=== PATIENT | male | born 1980 | race Caucasian/White ===

== ENCOUNTER 2019-05-02 08:24 | Outpatient (CLI) | payer BC ==
--- NOTE | 2019-05-02 09:55 | ULT ---
RIGHT BREAST DIAGNOSTIC ULTRASOUND: INDICATION: Pain within the right breast retroareolar region. FINDINGS: There is a flamed-shaped gynecomastia within the right breast retroareolar region. No identifiable s onographic mass is evident. IMPRESSION: BIRADS category 2 - benign. There is flamed-shaped male gynecomastia within the right breast subareo lar region. This is tender to palpation to the patient. Since this is becoming more symptomatic to the patient over the years, would recommend breast surgical referral for removal. Alternatively, sreedhar stic surgical referral could also be performed. The patient was counseled on findings prior to leavi ng the department. Negative imaging should never deter biopsy findings on clinical exam that are travis picious. CODE CR POS: OFF
--- NOTE | 2019-05-07 06:44 | MMO ---
Bilateral MAMMO Bilat Diag [facility]. CLINICAL HISTORY: Patient is 38 years old and is seen for diagnostic exam and lump or thickening in the right breast. The patient has no family history of breast cancer. The patient has no personal history of cancer. VIEWS: The views performed were: bilateral craniocaudal with tomosynthesis; bilateral mediolateral oblique with tomosynthesis; and bilateral mediolateral with tomosynthesis. FILMS COMPARED: The present examination has been compared to a prior imaging study performed at [facility] on 05/02/2019. MAMMOGRAM FINDINGS: There are scattered fibroglandular densities. There is an equal density, lobular mass seen in the sub-areolar region of the right breast. Palpable abnormality is seen to reflect assymetric breast tissue sonographically and mammographically. The right breast tissue is tender to the patient. There are no suspicious masses, suspicious calcifications, or new areas of architectural distortion. IMPRESSION: THERE IS NO MAMMOGRAPHIC EVIDENCE OF MALIGNANCY. ASYMMETRIC GYNECOMASTIA OF THE RIGHT BREAST. THE RIGHT BREAST TISSUE IS TENDER TO THE PATIENT. BREAST SURGICAL REFERRAL FOR REMOVAL IS RECOMMENDED. NEGATIVE IMAGING SHOULD NEVER DETER BIOPSY IF FINDINGS ON CLINICAL EXAM ARE SUSPICIOUS. THE RESULTS OF THIS EXAM WERE SENT TO THE PATIENT. ACR BI-RADS Category 2 - Benign finding MAMMOGRAPHY NOTE: 1. A negative mammogram report should not delay a biopsy if a dominant of clinically suspicious mass is present. 2. Approximately 10% to 15% of breast cancers are not detected by mammography. 3. Adenosis and dense breasts may obscure an underlying neoplasm. Reported by: TAYLOR CAMPO MD Electonically Signed: [id number]
== END 2019-05-02 08:25 | disposition home or self-care (01) ==
LOC: BICMAMMO 08:24
PROVIDERS: ATTEND Surgery
DX: N62 Hypertrophy of breast (principal); N63.0 Unspecified lump in unspecified breast
CPT/HCPCS: 77066; G0279

== ENCOUNTER 2019-05-17 07:53 | Day surgery (SDC) | payer BC ==
[2019-05-16 11:06] VITALS: BMI 27.1
[2019-05-17 09:18] LABS: #Eosinphils 0.1 thou/uL (0.0-0.7); #Lymphocytes 1.3 thou/uL (1.20-3.40); #Monocytes 0.3 thou/uL (0.11-0.59); #Neutrophils 2.6 thou/uL (1.40-6.50); %Basophils 0.7 % (0.0-1.0); %Eosinophils 2.7 % (0.0-10.0); %Lymphocytes 29.9 % (21.0-51.0); %Monocytes 7.7 % (0.0-10.0); Hemoglobin 15.1 g/dL (14.0-18.0); Mean Corpuscular Hemoglobin 30.3 pg (27.0-31.0); Mean Corpuscular Volume 86.8 fL (78.0-98.0); Mean Platelet Volume 7.4 fL (7.4-10.4); Platelet Count 178 thou/uL (130-400); RBC Distribution Width 11.9 % (11.5-14.5); Red Blood Cell (RBC) Count 4.99 mill/uL (4.70-6.10); White Blood Cell (WBC) Count 4.4 thou/uL (4.8-10.8)
[2019-05-17] MEDS ORDERED: Scopolamine 1.5 mg/72 hour Patch ONE (09:22)
[2019-05-17] MEDS ORDERED: Dexamethasone 20 MG/5 ML VIAL ONE (09:27)
[2019-05-17] MEDS ORDERED: Ondansetron PF 4 MG/2 ML Vial ONE (09:27)
[2019-05-17] MEDS ORDERED: PROPOFOL 200 MG/20 ML VIAL ONE (09:27)
[2019-05-17] MEDS ORDERED: Bupivacaine HCl 0.5%/Epinephrine 1:200,000/PF 30 ml Vial ONE (10:04)
[2019-05-17] MEDS ORDERED: Isosulfan Blue 50 MG/5 ML VIAL ONE (10:04)
[2019-05-17] MEDS ORDERED: Lidocaine 2% PF 5 ML VIAL ONE (10:04)
[2019-05-17] MEDS ORDERED: Fentanyl 100 MCG/2 ML VIAL ONE ×3 (10:07→11:48)
[2019-05-17] MEDS ORDERED: Midazolam HCl 2 mg/2 ml Vial ONE (10:07)
[2019-05-17] MEDS ORDERED: HYDROcodone/Acetaminophen 5/325 mg Tablet ONE (13:16)
--- NOTE | 2019-05-17 13:43 | OP ---
DATE OF PROCEDURE: 05/17/2019 PREOPERATIVE DIAGNOSIS: Right breast mass. PROCEDURE PERFORMED: Right breast biopsy. INDICATIONS: A 38-year-old male with a soft tissue swelling of the right breast. Mammogram suggested to be the gynecomastia, but it has been very painful, here for excision. FINDINGS: A 4 x 4 x 1.5 cm piece of tissue removed. DESCRIPTION OF PROCEDURE: After informed consent obtained, the patient was taken to the operating room, given general mask anesthesia, placed in the supine position. His right chest was prepped and draped in usual fashion. Local anesthesia was infiltrated subcutaneously and deep. A subareolar incision was performed. Subcu divided sharply. Then, using the plasma blade, the breast tissue was divided, leaving about three-quarters of a centimeter of tissue underneath the nipple areolar complex. This was performed circumferentially down to the fascia and then the tissue was excised off the fascia. It was marked with a blue suture anterior and a black suture superior, sent to Pathology for further analysis. Hemostasis was achieved with the plasma blade. A drain was placed and brought out through a separate stab wound. Then, the subcu reapproximated with interrupted 3-0 Vicryl. Skin closed with interrupted 4-0 Rapide. Steri-Strips applied. Sterile bandage applied. The patient tolerated the procedure well, transferred to Recovery in good condition. Sponge and needle count verified correct x2. Job ID: [id number]
== END 2019-05-17 14:00 | disposition home or self-care (01) ==
LOC: SDC 07:53
PROVIDERS: ATTEND Surgery
PROC: 0HBT0ZZ Excision of Right Breast, Open Approach (ICD-10-PCS; principal; 2019-05-17)
DX: N62 Hypertrophy of breast (principal); K21.9 Gastro-esophageal reflux disease without esophagitis; Z79.899 Other long term (current) drug therapy
CPT/HCPCS: 85025; 88305; J0670; J0690; J1100; J2001; J2250; J2405; J2704; J3010; Q9968

== ENCOUNTER 2021-03-14 08:58 | Inpatient (IN) | payer BC ==
[2021-03-14] MEDS ORDERED: Ondansetron PF 4 MG/2 ML Vial ONE ×2 (09:32→10:35)
[2021-03-14] MEDS ORDERED: Pantoprazole 40 MG VIAL ONE (09:32)
[2021-03-14 10:14] LABS: #Lymphocytes 0.5 thou/uL (1.20-3.40); #Monocytes 0.5 thou/uL (0.11-0.59); #Neutrophils 4.2 thou/uL (1.40-6.50); %Eosinophils 0.4 % (0.0-10.0); %Monocytes 9.7 % (0.0-10.0); Hemoglobin 15.6 g/dL (14.0-18.0); Mean Corpuscular HGB CONC 34.1 g/dL (32.0-36.0); Mean Corpuscular Volume 87.9 fL (78.0-98.0); Mean Platelet Volume 7.3 fL (7.4-10.4); Platelet Count 168 thou/uL (130-400); RBC Distribution Width 11.7 % (11.5-14.5); Red Blood Cell (RBC) Count 5.19 mill/uL (4.70-6.10); White Blood Cell (WBC) Count 5.1 thou/uL (4.8-10.8)
[2021-03-14 10:28] LABS: ALT (SGPT) 19 U/L (8-55); AST (SGOT) 17 U/L (5-34); Albumin 4.8 g/dL (3.5-5.0); Alkaline Phosphatase 70 U/L (40-110); Anion Gap 18 mmol/L (10-20); BUN (Urea Nitrogen) 23 mg/dL (8.9-20.6); Bilirubin, Total 0.6 mg/dL (0.2-1.2); Calc. Creatinine Clearance 0 mL/min (70-130); Calcium 9.2 mg/dL (7.8-10.44); Carbon Dioxide 21 mmol/L (22-29); Chloride 104 mmol/L (98-107); Globulin 3.2 g/dL (2.4-3.5); Glucose 111 mg/dL (70-105); Lipase 24 U/L (8-78); Potassium 3.9 mmol/L (3.5-5.1); Sodium 139 mmol/L (136-145)
[2021-03-14 10:32] LABS: Bilirubin Negative (Negative); Blood, Urine Negative (Negative); Clarity Clear (Clear); Glucose, Urine (Dipstick) Normal (Negative); Ketone, Urine Negative (Negative); Leukocyte Negative Leu/uL (Negative); Nitrite Negative (Negative); Protein, Urine (Dipstick) 10 mg/dL (Neg-Trace); Specific Gravity, Urine 1.023 (1.002-1.036); Urobilinogen Normal mg/dL (Less than 2); pH, Urine 5.5 (5.0-9.0)
[2021-03-14] MEDS ORDERED: Iopamidol-370 76% 500 ML 1 ML ONE (10:49)
[2021-03-14] MEDS ORDERED: Lorazepam 2 MG/ML VIAL ONE (12:21)
[2021-03-14] MEDS ORDERED: Acetaminophen 325 MG TAB PO PRN (12:32)
[2021-03-14] MEDS ORDERED: Acetaminophen 650 MG Suppository PR PRN (12:32)
[2021-03-14 14:10] LABS: Troponin I Less than 0.010 ng/mL (< 0.028)
[2021-03-14 15:56] VITALS: BMI 25.7
[2021-03-14] MEDS: Cepastat Lozenges 1 LOZ PO PRN ×2 (16:50→18:58)
[2021-03-14] MEDS: D5 1/2 NS w/10 mEq KCl 1,000 ML/1,000 ML BAG IV SCH ×2 (16:50→22:45)
[2021-03-14] MEDS: Pantoprazole 40 MG VIAL IVP SCH (20:18)
[2021-03-14] MEDS: Chloraseptic Spray 180 ml Bottle PO PRN (21:17)
[2021-03-15] MEDS: D5 1/2 NS w/10 mEq KCl 1,000 ML/1,000 ML BAG IV SCH ×3 (01:56→20:19)
[2021-03-15 06:58] LABS: SARS-CoV-2 NAA Rapid Test Not Detected (NotDetected)
[2021-03-15 06:59] LABS: Anion Gap 13 mmol/L (10-20); BUN (Urea Nitrogen) 17 mg/dL (8.9-20.6); Calc. Creatinine Clearance 94 mL/min (70-130); Calcium 8.4 mg/dL (7.8-10.44); Carbon Dioxide 20 mmol/L (22-29); Chloride 108 mmol/L (98-107); Glucose 123 mg/dL (70-105); Potassium 3.9 mmol/L (3.5-5.1); Sodium 137 mmol/L (136-145)
[2021-03-15] MEDS ORDERED: Fentanyl 100 MCG/2 ML VIAL ONE (07:51)
[2021-03-15 07:57] LABS: Hemoglobin 13.8 g/dL (14.0-18.0); Mean Corpuscular HGB CONC 34.3 g/dL (32.0-36.0); Mean Corpuscular Hemoglobin 29.9 pg (27.0-31.0); Mean Corpuscular Volume 87.3 fL (78.0-98.0); Mean Platelet Volume 6.9 fL (7.4-10.4); Platelet Count 154 thou/uL (130-400); RBC Distribution Width 11.6 % (11.5-14.5); Red Blood Cell (RBC) Count 4.62 mill/uL (4.70-6.10); White Blood Cell (WBC) Count 3.2 thou/uL (4.8-10.8)
[2021-03-15] MEDS ORDERED: Lidocaine 1% PF 5 ML VIAL ONE (08:17)
[2021-03-15] MEDS ORDERED: Ketorolac Tromethamine 30 MG/ML VIAL ONE (08:17)
[2021-03-15] MEDS ORDERED: Dexamethasone 20 MG/5 ML VIAL ONE (08:17)
[2021-03-15] MEDS ORDERED: PROPOFOL 200 MG/20 ML VIAL ONE (08:17)
[2021-03-15] MEDS ORDERED: Ondansetron PF 4 MG/2 ML Vial ONE (08:17)
[2021-03-15] MEDS ORDERED: Succinylcholine 200 MG/10 ml SYRINGE FS ONE (08:17)
[2021-03-15] MEDS ORDERED: Rocuronium Bromide 10 MG/ML (10ML VIAL) ONE (08:17)
[2021-03-15] MEDS ORDERED: Promethazine HCl 25 MG/ML VIAL IVPB PRN (08:35)
[2021-03-15] MEDS ORDERED: Ondansetron HCl/PF 4 MG/2 ML Vial IVP PRN (08:35)
[2021-03-15] MEDS ORDERED: Promethazine HCl 25 MG/ML VIAL IM PRN (08:35)
[2021-03-15 09:12] LABS: Band 16 % (5-11); Lymphocytes 27 % (21-51); MDiff Complete? YES; Monocytes 17 % (0-10); Neutrophil 40 % (42-75); RBC Morphology Normal
[2021-03-15] MEDS: Pantoprazole 40 MG VIAL IVP SCH ×2 (13:51→20:20)
[2021-03-16] MEDS: D5 1/2 NS w/10 mEq KCl 1,000 ML/1,000 ML BAG IV SCH ×2 (05:21→12:51)
[2021-03-16] MEDS: Pantoprazole 40 MG VIAL IVP SCH (08:29)
[2021-03-16] MEDS: Chloraseptic Spray 180 ml Bottle PO PRN (08:34)
[2021-03-16 13:26] VITALS: BP 109/67; TEMP 97.3
== END 2021-03-16 13:17 | disposition home or self-care (01) | DRG 381 ==
LOC: ERS 08:58 → T4-A 12:09
PROVIDERS: ADMIT Family Medicine; ATTEND Internal Medicine
PROC: 0D9670Z Drainage of Stomach with Drainage Device, Via Natural or Artificial Opening (ICD-10-PCS; principal; 2021-03-14)
PROC: 0DJ08ZZ Inspection of Upper Intestinal Tract, Via Natural or Artificial Opening Endoscopic (ICD-10-PCS; 2021-03-15)
DX: K22.10 Ulcer of esophagus without bleeding (principal); N17.9 Acute kidney failure, unspecified; Z20.822 Contact with and (suspected) exposure to COVID-19; K21.9 Gastro-esophageal reflux disease without esophagitis; Z52.4 Kidney donor; Z79.899 Other long term (current) drug therapy
CPT/HCPCS: 36415; 74018; 74177; 78264; 80048; 80053; 81003; 83690; 84484; 85025; 93005; 96372; 96374; 96375; 96376; A9541; C9113; J0500; J1100; J1885; J2060; J2405; J2704; J3010; J3480; Q9967; U0002; U0003; U0005